=== PATIENT | male | born 1950 | race Caucasian/White ===

== ENCOUNTER → 2017-11-17 16:21 | Outpatient (REF) | payer MEDICARE, MEDICAID, SELFPAY | LOC: LAB 16:21 | PROVIDERS: Visit Provider Urology | DX: C67.9 Malignant neoplasm of bladder, unspecified (principal) | CPT/HCPCS: 87086; 87088 ==

== ENCOUNTER → 2017-12-15 14:50 | Outpatient (CLI) | payer MEDICARE, MEDICAID, SELFPAY | PROVIDERS: Visit Provider Urology | DX: R39.89 Other symptoms and signs involving the genitourinary system (principal) | CPT/HCPCS: 87086; 87088; 87186 ==

== ENCOUNTER → 2018-01-20 13:34 | Outpatient (CLI) | payer MEDICARE, MEDICAID, SELFPAY ==
[2018-01-20 19:36] LABS: Amphetamine/Metha Screen,Urine Negative ng/mL (<1000); Barbiturates Screen,Urine Negative ng/mL (<200); Benzodiazepines Screen,Urine Positive ng/mL (200); Cannabinoid Screen,Urine Negative ng/mL (<50); Cocaine Screen,Urine Negative ng/g (<300); Methadone Screen,Urine Negative ng/mL (<300); Opiate Screen,Urine Negative ng/mL (<300); Phencyclidine Screen,Urine Negative ng/mL (<25)
== END ==
PROVIDERS: Visit Provider Emergency Medicine
DX: Z79.899 Other long term (current) drug therapy (principal)
CPT/HCPCS: 80305

== ENCOUNTER 2018-01-23 18:06 | Emergency (ER) | payer MEDICARE, MEDICAID, SELFPAY ==
[2018-01-23 18:10] VITALS: BP 117/56; PULSE 75; RESP 20; TEMP 37.1; O2SAT 96; BMI 27.0
[2018-01-23 18:53] VITALS: BP 146/80; PULSE 82; RESP 18; TEMP 36.4; O2SAT 95; BMI 27.0
[2018-01-23 19:20] LABS: Microscopic, Urine URINE MICROSCOPIC (MICROSCOPIC)
[2018-01-23 19:32] LABS: Appearance,Urine TURBID (Clear); Bilirubin,Urine Negative (Negative); Blood, Urine 3+ (Negative); Glucose,Urine (UA) Negative (Negative); Ketones,Urine Negative (Negative); Leukocyte Esterase,Urine TRACE (Negative); Nitrate,Urine Negative (Negative); PH,Urine 6.5 (5.0-8.5); Protein,Urine 3+ (Negative); Urobilinogen,Urine 0.2 EU/dl (0.2)
[2018-01-23 19:38] LABS: Color,Urine RED (Yellow)
[2018-01-23 19:39] LABS: Bacteria,Urine 3+ /lpf; RBC,Urine TNTC #/hpf (0-3); WBC,Urine TNTC #/hpf (0-3)
--- NOTE | 2018-01-23 19:45 | HMH.EDUROGM ---
ED Disposition Clinical Impression: Hematuria Qualifiers: Hematuria type: gross Qualified Code(s): R31.0 - Gross hematuria UTI (urinary tract infection) Qualifiers: Urinary tract infection type: acute cystitis Hematuria presence: with hematuria Qualified Code(s): N30.01 - Acute cystitis with hematuria Disposition: Home, Self-Care Condition on Discharge: Good Instructions: DI for Urinary Tract Infection (UTI), DI for Hematuria Additional Instructions: Please follow-up with Dr. Guardado in 2 days. Leave the Grubbs catheter in. If unable to see Dr. Guardado in 2-3 days please return to this emergency room for reevaluation and removal of the Grubbs catheter. Take antibiotics prescribed as instructed. Prescriptions: Ciprofloxacin HCl [Ciprofloxacin 500mg Tab] 500 mg PO BID #14 tab Referrals: Jerrod Guardado MD [Staff Physician] - Time of Disposition: 19:46 - Critical Care Critical Care Time: No Attestation: On 01/23/18, the high probability of a clinically significant, sudden or life threatening deterioration of the following system(s) required my full and direct attention, intervention and personal management. The time I documented below is in addition to time spent performing reported procedures but includes the following listed in this critical care notation. Medical Decision Making - Medical Records Medical records reviewed: Yes: I reviewed the patient's medical records. - Yoni Inquiry Pt receiving controlled substance: No Vital Signs: 01/23/18 18:10 01/23/18 18:53 01/23/18 20:17 Temperature 98.7 F 97.5 F L 98.2 F Temperature Source Tympanic Oral Oral Pulse Rate 90 Pulse Rate [Right Radial] 75 82 Respiratory Rate 20 18 20 Blood Pressure 125/71 Blood Pressure [Right Arm] 117/56 146/80 Blood Pressure Mean [Right Arm] 76 102 Blood Pressure Source [Right Arm] Automatic Cuff Automatic Cuff Blood Pressure Position Sitting Blood Pressure Position [Right Arm] Sitting Sitting 02 Sat by Pulse Oximetry 96 95 Oxygen Delivery Method Room Air Room Air Room Air - Lab Data Lab Results 01/23/18 19:00: Urine Color Red, Urine Appearance Turbid, Urine pH 6.5, Ur Specific [place] 1.020, Urine Protein 3+, Urine Glucose (UA) Negative, Urine Ketones Negative, Urine Blood 3+, Urine Nitrate Negative, Urine Bilirubin Negative, Urine Urobilinogen 0.2, Ur Leukocyte Esterase Trace, Urine RBC Tntc, Urine WBC Tntc, Ur Squamous Epith Cells 10-20, Urine Bacteria 3+ Orders (Tests/Meds): ED MEDICATIONS Discontinued Medications Generic Name Dose Route Start Last Admin Trade Name Poonam PRN Reason Stop Dose Admin Levofloxacin 500 mg 01/23/18 19:48 01/23/18 19:56 Levaquin 500mg Tab PO 01/23/18 19:49 500 mg ONCE ONE Administration Protocol Male Urogenital HPI - General Chief complaint: Urogenital-Male Stated complaint: Blood in urine Time Seen by Provider: 01/23/18 19:30 Mode of Arrival: Family Vehicle Source of Information: Patient Limitations: No Limitations Description of Symptoms (Recalled from ER Triage Doc. by RN): C/O URINATING BLOOD SINCE 15[address]. SEEING DR GUARDADO FOR THIS PROBLEM FOR AWHILE. LAST APPOINTMENT ABOUT 30 DAYS AGO. C/O FREQUENCY DURING THE NIGHT. CAME OVER FROM [facility] WHERE HE VOIDED BUT NO URINE SPECIMEN REQUESTED. - History of Present Illness HPI Narrative: hematuria MD Complaint: dysuria, other (hematuria) Onset (ago): day(s) (1) Duration: intermittent Severity: mild Severity scale (1-10): 2 Quality: other (painless) Relieving factors: urination Exacerbating factors: none Reports: denies other symptoms - Related Data Home Medications Medication Instructions Recorded Confirmed aspirin 81 mg tablet,delayed 81 mg PO QDAY 11/17/17 01/23/18 release tamsulosin 0.4 mg capsule 0.4 mg PO QDAY 11/17/17 01/23/18 ALPRAZolam [Xanax 2mg Tab] 2 mg PO TID 01/23/18 01/23/18 Gabapentin [Neurontin 800mg Tab] 800 mg PO TID 01/23/18 01/23/18 Lisinopril [Prinivil 10mg Tabl
--- NOTE | 2018-01-23 19:48 | ED_ITS ---
ED Disposition Clinical Impression: Hematuria Qualifiers: Hematuria type: gross Qualified Code(s): R31.0 - Gross hematuria UTI (urinary tract infection) Qualifiers: Urinary tract infection type: acute cystitis Hematuria presence: with hematuria Qualified Code(s): N30.01 - Acute cystitis with hematuria Disposition: Home, Self-Care Condition on Discharge: Good Instructions: DI for Urinary Tract Infection (UTI), DI for Hematuria Additional Instructions: Please follow-up with Dr. Guardado in 2 days. Leave the Grubbs catheter in. If unable to see Dr. Guardado in 2-3 days please return to this emergency room for reevaluation and removal of the Grubbs catheter. Take antibiotics prescribed as instructed. Prescriptions: Ciprofloxacin HCl [Ciprofloxacin 500mg Tab] 500 mg PO BID #14 tab Referrals: Jerrod Guardado MD [Staff Physician] - Time of Disposition: 19:46 - Critical Care Critical Care Time: No Attestation: On 01/23/18, the high probability of a clinically significant, sudden or life threatening deterioration of the following system(s) required my full and direct attention, intervention and personal management. The time I documented below is in addition to time spent performing reported procedures but includes the following listed in this critical care notation. Medical Decision Making - Medical Records Medical records reviewed: Yes: I reviewed the patient's medical records. - Yoni Inquiry Pt receiving controlled substance: No Vital Signs: 01/23/18 18:10 01/23/18 18:53 01/23/18 20:17 Temperature 98.7 F 97.5 F L 98.2 F Temperature Source Tympanic Oral Oral Pulse Rate 90 Pulse Rate [Right Radial] 75 82 Respiratory Rate 20 18 20 Blood Pressure 125/71 Blood Pressure [Right Arm] 117/56 146/80 Blood Pressure Mean [Right Arm] 76 102 Blood Pressure Source [Right Arm] Automatic Cuff Automatic Cuff Blood Pressure Position Sitting Blood Pressure Position [Right Arm] Sitting Sitting 02 Sat by Pulse Oximetry 96 95 Oxygen Delivery Method Room Air Room Air Room Air - Lab Data Lab Results 01/23/18 19:00: Urine Color Red, Urine Appearance Turbid, Urine pH 6.5, Ur Specific Lane 1.020, Urine Protein 3+, Urine Glucose (UA) Negative, Urine Ketones Negative, Urine Blood 3+, Urine Nitrate Negative, Urine Bilirubin Negative, Urine Urobilinogen 0.2, Ur Leukocyte Esterase Trace, Urine RBC Tntc, Urine WBC Tntc, Ur Squamous Epith Cells 10-20, Urine Bacteria 3+ Orders (Tests/Meds): ED MEDICATIONS Discontinued Medications Generic Name Dose Route Start Last Admin Trade Name Poonam PRN Reason Stop Dose Admin Levofloxacin 500 mg 01/23/18 19:48 01/23/18 19:56 Levaquin 500mg Tab PO 01/23/18 19:49 500 mg ONCE ONE Administration Protocol Male Urogenital HPI - General Chief complaint: Urogenital-Male Stated complaint: Blood in urine Time Seen by Provider: 01/23/18 19:30 Mode of Arrival: Family Vehicle Source of Information: Patient Limitations: No Limitations Description of Symptoms (Recalled from ER Triage Doc. by RN): C/O URINATING BLOOD SINCE [address]. SEEING DR GUARDADO FOR THIS PROBLEM FOR AWHILE. LAST APPOINTMENT ABOUT 30 DAYS AGO. C/O FREQUENCY DURING THE NIGHT. CAME OVER FROM [facility] WHERE HE VOIDED BUT NO URINE SPECIMEN REQUESTED. - History of Present Illness HPI Narrative: hematuria Comp
--- NOTE | 2018-01-23 19:52 | PC.NURSE ---
Attempted to place a 16fr F/C, unable to successfully place. Pt now has a 16fr coude inserted by MUNIRA Suarez
[2018-01-23 20:17] VITALS: BP 125/71; PULSE 90; RESP 20; TEMP 36.8; O2SAT 96
== END 2018-01-23 20:18 | disposition home or self-care (01) ==
LOC: ER 18:24 → UTC 18:24 → ER 18:52
PROVIDERS: Emergency Provider Emergency Medicine; PCP Emergency Medicine
DX: N30.01 Acute cystitis with hematuria (principal); Z79.82 Long term (current) use of aspirin; I10 Essential (primary) hypertension; F41.9 Anxiety disorder, unspecified
CPT/HCPCS: 81001; 87086; 87088; 87186; 99211; 99283

== ENCOUNTER → 2018-02-16 15:10 | Outpatient (REF) | payer MEDICARE, MEDICAID, SELFPAY | LOC: LAB 15:10 | PROVIDERS: Visit Provider Urology | DX: R39.89 Other symptoms and signs involving the genitourinary system (principal) | CPT/HCPCS: 87086; 87088; 87186 ==

== ENCOUNTER → 2018-02-23 11:29 | Outpatient (CLI) | payer MEDICARE, MEDICAID, SELFPAY ==
--- NOTE | 2018-02-23 11:30 | NM_ITS ---
History and Indications: Hypertension, tobacco use, shortness of breath and fatigue Procedure: Patient exercised on Filemon protocol 6 minutes and 12 seconds, resting heart rate was 70 bpm resting blood pressure 121/68, with exercise maximum heart rate achieved was 1 30 bpm which is equal to 85% of the maximum predicted heart rate and a blood pressure was 157/70. Test was started due to shortness of breath and fatigue, patient denied any complained of chest pain. Patient has adequate exercise capacity achieved 7mets of workload on treadmill, the blood pressure response to exercise was adequate. Electrocardiogram: Resting electrocardiogram showed sinus rhythm, with exercise there is less than 1.[address] segment depression noted from the baseline EKG. The EKG portion of the exercise Myoview is negative for ischemia. Cardiac stress and resting SPECT images: Cardiac stress and rest SPECT images were obtained using technetium 99 Myoview 30.1 mCi at stress and 10.3 mCi at rest, gated SPECT further analysis of segmental wall motion and calculation of the ejection fraction also done. Cardiac stress and resting SPECT images show reversible ischemia involving the anteroseptal wall, computer derived ejection fraction is 50% with no obvious regional wall motion abnormality, right ventricle is mildly enlarged with normal contractility. Conclusion: 1. The EKG portion of the exercise Myoview is negative for ischemia, patient has adequate exercise capacity achieved 7mets of workload on treadmill, the blood pressure response to exercise was adequate, there was no exercise-induced chest discomfort. 2. Scintigraphic evidence of mild reversible ischemia involving the anteroseptal wall, computer derived ejection fraction 50% with no obvious regional wall motion abnormality, right ventricle is mildly enlarged with normal contractility. 3. Abnormal exercise Myoview study.
== END ==
PROVIDERS: PCP Emergency Medicine; Visit Provider Emergency Medicine
DX: R06.02 Shortness of breath (principal)
CPT/HCPCS: 78452; 93017; A9502

== ENCOUNTER → 2018-03-14 10:35 | Outpatient (CLI) | payer MEDICARE, MEDICAID, SELFPAY ==
--- NOTE | 2018-03-14 10:45 | CT_ITS ---
CT chest wo/w con HISTORY: Shortness of air, cough, smoker ITS.REASON: cough, tobacco use ORDERING PHYSICIAN: Joe Holliday MD PATIENT AGE: 67 years Technique: Axial images obtained without and with contrast. Sagittal and coronal reformatted images are also generated and reviewed. All CT scans at the facility use one or more dose reduction, viz: automated exposure control; ma/kV adjustment per patient size (including targeted exams where dose is matched to indication; i.e. head); or iterative reconstruction technique. CONTRAST: 75ml Isovue 370 I.V. FINDINGS: No mediastinal or hilar mass or adenopathy. Normal heart size. There is extensive coronary artery calcification better detected on the unenhanced images. No evidence of aortic aneurysm or dissection. No evidence of central pulmonary embolus. Centrilobular and paraseptal emphysematous changes. 4 mm noncalcified nodule right upper lobe laterally. 7 x 5 mm noncalcified nodule in the right upper lobe posterior medially well-circumscribed along the anterior aspect of the major fissure. No obvious enhancement Calcified granuloma left upper lobe. There are mild atelectatic changes in the lung bases. No lobar consolidation or collapse. No effusions or infiltrates. Upper abdominal images show several isodense lesions of the liver measuring up to 1 cm centrally and may be due to small cysts. 18 mm right renal cyst. 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 IMPRESSION: 1. Centrilobular and paraseptal emphysematous changes. 2. There are at least 2 noncalcified pulmonary nodules the largest at 7 x 5 mm in the right upper lobe medially. This nodule is well-circumscribed. Recommend 6 month follow-up. 3. 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 Coronary artery calcification consistent with coronary artery disease.
[2018-03-14 10:54] LABS: Basophils % 0.3 % (0.1-2.0); Eosinophils # 0.2 K/mm3 (0.0-0.4); Eosinophils % 1.8 % (0.1-12.0); Hematocrit 42.8 % (42.0-52.0); Hemoglobin 13.7 g/dL (14.1-18.0); Lymphocytes # 1.9 K/mm3 (0.7-4.5); Lymphocytes % 21.9 K/mm3 (10-50); Mean Corpuscular HGB Conc 31.9 g/dL (31.8-35.4); Mean Corpuscular Hemoglobin 29.5 pg (27.0-31.2); Mean Corpuscular Volume 92.4 fl (80-94); Mean Platelet Volume 7.9 fl (7.4-10.4); Monocytes # 0.5 K/mm3 (0.1-1.0); Monocytes % 5.5 % (1.7-9.3); Neutrophils # 6.1 K/mm3 (1.8-7.8); Neutrophils % 70.5 % (37.0-80.0); Platelet Count 143 K/mm3 (142-424); Red Blood Count 4.63 M/mm3 (4.60-6.20); Red Cell Distribution Width 12.9 % (11.5-17.5); White Blood Count 8.6 K/mm3 (4.8-10.8)
[2018-03-14 10:58] LABS: Anion Gap 9.4 mEq/L (5-15); Blood Urea Nitrogen 16 mg/dL (7-18); Carbon Dioxide 30 mmol/L (21.0-32.0); Chloride 105 mmol/L (98-107); Creatinine,Serum 0.88 mg/dL (0.70-1.30); Estimated Glomerular Filt Rate 86 ml/min (>60); GFR (African American) 105 ML/MIN (>60); Glucose 122 mg/dL (74-106); Potassium 4.4 mmoL/L (3.5-5.1); Sodium 140 mmol/L (136-145)
== END ==
PROVIDERS: PCP Emergency Medicine; Visit Provider Internal Medicine
DX: J44.9 Chronic obstructive pulmonary disease, unspecified (principal); R06.00 Dyspnea, unspecified; R05 Cough; R94.39 Abnormal result of other cardiovascular function study; F41.9 Anxiety disorder, unspecified; F17.200 Nicotine dependence, unspecified, uncomplicated; I10 Essential (primary) hypertension
CPT/HCPCS: 36415; 71270; 80048; 85025; Q9967

== ENCOUNTER → 2018-03-16 12:52 | Outpatient (REF) | payer MEDICARE, MEDICAID, SELFPAY | LOC: LAB 12:52 | PROVIDERS: Visit Provider Urology | DX: R39.89 Other symptoms and signs involving the genitourinary system (principal) | CPT/HCPCS: 87086; 87088; 87186 ==

== ENCOUNTER → 2018-04-21 15:21 | Outpatient (CLI) | payer MEDICARE, MEDICAID, SELFPAY ==
[2018-04-21 18:33] LABS: Amphetamine/Metha Screen,Urine Negative ng/mL (<1000); Barbiturates Screen,Urine Negative ng/mL (<200); Benzodiazepines Screen,Urine Positive ng/mL (200); Cannabinoid Screen,Urine Negative ng/mL (<50); Cocaine Screen,Urine Negative ng/g (<300); Methadone Screen,Urine Negative ng/mL (<300); Opiate Screen,Urine Negative ng/mL (<300); Phencyclidine Screen,Urine Negative ng/mL (<25)
== END ==
PROVIDERS: Visit Provider Emergency Medicine
DX: Z79.899 Other long term (current) drug therapy (principal)
CPT/HCPCS: 80305

== ENCOUNTER → 2018-07-19 14:37 | Outpatient (CLI) | payer MEDICARE, MEDICAID, SELFPAY ==
[2018-07-19 18:57] LABS: Amphetamine/Metha Screen,Urine Negative ng/mL (<1000); Barbiturates Screen,Urine Negative ng/mL (<200); Benzodiazepines Screen,Urine Positive ng/mL (<200); Cannabinoid Screen,Urine Negative ng/mL (<50); Cocaine Screen,Urine Negative ng/mL (<300); Methadone Screen,Urine Negative ng/mL (<300); Opiate Screen,Urine Negative ng/mL (<300); Phencyclidine Screen,Urine Negative ng/mL (<25)
== END ==
PROVIDERS: Visit Provider Emergency Medicine
DX: Z79.899 Other long term (current) drug therapy (principal)
CPT/HCPCS: 80305

== ENCOUNTER → 2018-10-17 17:05 | Outpatient (CLI) | payer MEDICARE, MEDICAID, SELFPAY ==
[2018-10-17 18:25] LABS: Amphetamine/Metha Screen,Urine Negative ng/mL (<1000); Barbiturates Screen,Urine Negative ng/mL (<200); Benzodiazepines Screen,Urine Positive ng/mL (<200); Cannabinoid Screen,Urine Negative ng/mL (<50); Cocaine Screen,Urine Negative ng/mL (<300); Methadone Screen,Urine Negative ng/mL (<300); Opiate Screen,Urine Positive ng/mL (<300); Phencyclidine Screen,Urine Negative ng/mL (<25)
== END ==
PROVIDERS: Visit Provider Emergency Medicine
DX: Z79.899 Other long term (current) drug therapy (principal)
CPT/HCPCS: 80305

== ENCOUNTER → 2018-11-13 13:51 | Outpatient (CLI) | payer MEDICARE, MEDICAID, SELFPAY ==
[2018-11-13 19:00] LABS: Amphetamine/Metha Screen,Urine Negative ng/mL (<1000); Barbiturates Screen,Urine Negative ng/mL (<200); Benzodiazepines Screen,Urine Positive ng/mL (<200); Cannabinoid Screen,Urine Positive ng/mL (<50); Cocaine Screen,Urine Negative ng/mL (<300); Methadone Screen,Urine Negative ng/mL (<300); Opiate Screen,Urine Positive ng/mL (<300); Phencyclidine Screen,Urine Negative ng/mL (<25)
== END ==
PROVIDERS: Visit Provider Emergency Medicine
DX: Z79.899 Other long term (current) drug therapy (principal)
CPT/HCPCS: 80305

== ENCOUNTER 2018-11-15 09:03 | Outpatient (CLI) | payer MEDICARE, MEDICAID, SELFPAY ==
[2018-11-15] VITALS (20 sets, daily range): BP systolic 105–142; BP diastolic 63–86; PULSE 70–92; RESP 16–18; O2SAT 91
[2018-11-15 09:22] LABS: Basophils % 0.4 % (0.1-2.0); Eosinophils # 0.1 K/mm3 (0.0-0.4); Eosinophils % 1.4 % (0.1-12.0); Hematocrit 41.4 % (42.0-52.0); Hemoglobin 12.7 g/dL (14.1-18.0); Lymphocytes # 2.2 K/mm3 (0.7-4.5); Lymphocytes % 26.1 % (10-50); Mean Corpuscular HGB Conc 30.6 g/dL (31.8-35.4); Mean Corpuscular Hemoglobin 25.3 pg (27.0-31.2); Mean Corpuscular Volume 82.6 fl (80-94); Mean Platelet Volume 7.1 fl (7.4-10.4); Monocytes # 0.5 K/mm3 (0.1-1.0); Monocytes % 5.6 % (1.7-9.3); Neutrophils # 5.5 K/mm3 (1.8-7.8); Neutrophils % 66.5 % (37.0-80.0); Platelet Count 207 K/mm3 (142-424); Red Blood Count 5.01 M/mm3 (4.60-6.20); Red Cell Distribution Width 14.3 % (11.5-17.5); White Blood Count 8.3 K/mm3 (4.8-10.8)
[2018-11-15 09:28] LABS: Alanine Aminotransferase 16 U/L (12-78); Albumin Level 3.1 gm/dL (3.4-5.0); Albumin/Globulin Ratio 0.8 (1.1-1.8); Alkaline Phosphatase 121 U/L (46-116); Aspartate Amino Transferase 12 U/L (15-37); Bilirubin,Total 0.2 mg/dL (0.2-1.0); Blood Urea Nitrogen 21 mg/dL (7-18); Calcium 8.3 mg/dL (8.5-10.1); Carbon Dioxide 30 mmol/L (21.0-32.0); Chloride 103 mmol/L (98-107); Creatinine,Serum 0.88 mg/dL (0.70-1.30); Estimated Glomerular Filt Rate 86 ml/min (>60); GFR (African American) 104 ML/MIN (>60); Globulin 3.7 gm/dl (1.3-3.2); Glucose 121 mg/dL (74-106); Sodium 138 mmol/L (136-145); Total Protein,Serum 6.8 gm/dL (6.4-8.2)
== END 2018-11-15 17:55 | disposition home or self-care (01) ==
LOC: INF 09:03
PROVIDERS: Visit Provider Internal Medicine Medical Oncology
DX: Z51.11 Encounter for antineoplastic chemotherapy (principal); C67.9 Malignant neoplasm of bladder, unspecified
CPT/HCPCS: 36415; 80053; 85025; 96413; 96415; 96417; J9060; J9201; Q0166

== ENCOUNTER 2018-11-22 12:44 | Outpatient (CLI) | payer MEDICARE, MEDICAID, SELFPAY ==
[2018-11-22 13:14] VITALS: BMI 27.8
[2018-11-22 13:29] LABS: Microscopic, Urine URINE MICROSCOPIC (MICROSCOPIC)
[2018-11-22 13:43] LABS: Appearance,Urine TURBID (Clear); Bilirubin,Urine Negative (Negative); Color,Urine RED (Yellow); Glucose,Urine (UA) Negative (Negative); Ketones,Urine Negative (Negative); Leukocyte Esterase,Urine 1+ (Negative); Nitrate,Urine POSITIVE (Negative); Protein,Urine 2+ (Negative); Urobilinogen,Urine 0.2 EU/dl (0.2)
[2018-11-22 13:45] LABS: Blood, Urine 2+ (Negative)
[2018-11-22 13:49] LABS: Bacteria,Urine 1+ /lpf; RBC,Urine TNTC #/hpf (0-3)
[2018-11-22 13:59] LABS: Anion Gap 12.7 mEq/L (5-15); Blood Urea Nitrogen 31 mg/dL (7-18); Calcium 8.5 mg/dL (8.5-10.1); Carbon Dioxide 29 mmol/L (21.0-32.0); Chloride 101 mmol/L (98-107); Creatinine Clearance Estimated 93 mL/min (50-200); Creatinine,Serum 0.85 mg/dL (0.70-1.30); Estimated Glomerular Filt Rate 90 ml/min (>60); GFR (African American) 108 ML/MIN (>60); Glucose 111 mg/dL (74-106); Potassium 4.7 mmoL/L (3.5-5.1); Sodium 138 mmol/L (136-145)
[2018-11-22 14:03] LABS: Basophils % 0.1 % (0.1-2.0); Hemoglobin 11.9 g/dL (14.1-18.0); Lymphocytes # 0.9 K/mm3 (0.7-4.5); Mean Corpuscular HGB Conc 30.5 g/dL (31.8-35.4); Mean Corpuscular Hemoglobin 25.2 pg (27.0-31.2); Mean Corpuscular Volume 82.8 fl (80-94); Mean Platelet Volume 7.2 fl (7.4-10.4); Monocytes # 0.1 K/mm3 (0.1-1.0); Monocytes % 1.2 % (1.7-9.3); Neutrophils # 7.6 K/mm3 (1.8-7.8); Neutrophils % 88.6 % (37.0-80.0); Platelet Count 154 K/mm3 (142-424); Red Blood Count 4.71 M/mm3 (4.60-6.20); Red Cell Distribution Width 14.5 % (11.5-17.5); White Blood Count 8.5 K/mm3 (4.8-10.8)
[2018-11-22 14:06] LABS: MANUAL DIFFERENTIAL MANUAL DIFFERENTIAL (MANUAL DIFF)
[2018-11-22 14:36] VITALS: BP 168/95; PULSE 85; RESP 20; TEMP 36.6; O2SAT 94
[2018-11-22 14:50] LABS: Lymphocytes % 14 % (10-50); Neutrophils % 86 % (42-76); Platelet Estimate Normal; Total Cells Counted 100
[2018-11-22 14:51] LABS: Hypochromasia 1+
[2018-11-22 15:06] VITALS: BP 158/75; PULSE 81; RESP 20; O2SAT 95
[2018-11-22 15:25] VITALS: BP 156/71; PULSE 80; RESP 20; O2SAT 94
== END 2018-11-22 15:30 | disposition home or self-care (01) ==
LOC: INF 12:44
PROVIDERS: Visit Provider Internal Medicine Medical Oncology
DX: C67.9 Malignant neoplasm of bladder, unspecified (principal); Z51.11 Encounter for antineoplastic chemotherapy; R82.90 Unspecified abnormal findings in urine
CPT/HCPCS: 80048; 81001; 85007; 85025; 87077; 87086; 96413; G0463; J9201; Q0166

== ENCOUNTER → 2018-11-22 20:06 | Outpatient (CLI) | payer MEDICARE, MEDICAID, SELFPAY ==
--- NOTE | 2018-11-22 20:32 | PC.NURSE ---
pt seen in outpatient per dr jansen orders for prater cath pain. pt states his prater was placed earlier today while getting chemo here. no urine output noted in leg bag. prater removed and new 16 fr prater cath placed via sterile technique and placed to bsd bag system. +blood tinged urine noted in bsd bag. pt states that his urine has been bloody and his doctor is aware. pt states he has immediate relief. pt instructed on leg bag use, emptying and cleaning. pt verbalizes understanding and provides return demonstration. pt released at this time.
== END ==
LOC: ER 20:08 → INF 11-28 11:11
PROVIDERS: PCP Emergency Medicine; Visit Provider Emergency Medicine
DX: T83.091A Other mechanical complication of indwelling urethral catheter, initial encounter (principal); C67.9 Malignant neoplasm of bladder, unspecified
CPT/HCPCS: G0463